=== PATIENT | male | born 1980 | race Hispanic/Latino ===

== ENCOUNTER 2020-12-02 07:06 | Emergency (ER) | payer SELFPAY ==
--- NOTE | 2020-12-02 07:49 | EDPHYS ---
Physician Documentation [facility] Name: Manuel Tijerina Age: 40 yrs Sex: Male : 1980 Arrival Date: 12/02/2020 Time: 07:07 Bed 13 Private MD: ED Physician Billy Armijo HPI: 12/02 07:33 This 40 yrs old Male presents to ER via Ambulatory with complaints of Foreign kb Body In Eye. 07:33 The patient is experiencing pain, redness, to the left eye. Onset: The symptoms/episode kb began/occurred yesterday, and became worse this morning. Duration: the symptoms are continuous. Aggravated by nothing. Alleviated by nothing. Associated signs and symptoms: Pertinent positives: None. Severity of symptoms: At their worst the symptoms were moderate in the emergency department the symptoms are unchanged. The patient has experienced a previous episode. The patient has not recently seen a physician. Patient reports dryness to left eye that started after work yesterday. Woke up today with pain and redness to left eye. States he works in construction and believes maybe he got something in his eye.. Historical: - Allergies: 07:27 NKDA; bp - Home Meds: 07:27 None [Active]; bp - PMHx: 07:27 None; bp - Immunization history:: Adult Immunizations up to date. - Social history:: Smoking status: Patient denies any tobacco usage or history of. ROS: 07:33 Constitutional: Negative for fever, chills, and weight loss. kb 07:33 Eyes: Positive for pain, redness, of the left eye. 07:33 All other systems are negative. Exam: 07:34 Constitutional: This is a well developed, well nourished patient who is awake, alert, kb and in no acute distress. Head/Face: Normocephalic, atraumatic. ENT: Moist Mucous membranes Respiratory: Respirations even and unlabored. No increased work of breathing, no retractions or nasal flaring. Skin: Warm, dry with normal turgor. Normal color. MS/ Extremity: Pulses equal, no cyanosis. Neurovascular intact. Full, normal range of motion. Neuro: Awake and alert, GCS 15, oriented to person, place, time, and situation. Moves all extremities. Normal gait. Psych: Awake, alert, with orientation to person, place and time. Behavior, mood, and affect are within normal limits. 07:45 Eyes: Corneas: abrasion, that is small, on the left, at 3 o'clock, foreign body, on kb the left, at 3 o'clock, tiny piece of debris, a fluorescein strip employed to appreciate the findings. Vital Signs: 07:26 BP 135 / 86; Pulse 58; Resp 16; Temp 97.2; Pulse Ox 100% ; Weight 92.99 kg; Height 5 bp ft. 9 in. (175.26 cm); 07:26 Body Mass Index 30.27 (92.99 kg, 175.26 cm) bp Procedures: 07:46 Foreign Body Removal: dirt, from the left eye, conjunctiva by using a cotton-tipped kb swab, The patient tolerated the removal well. MDM: 07:21 Patient medically screened. kb 07:34 Data reviewed: vital signs, nurses notes. Data interpreted: Pulse oximetry: on room air kb is 100 %. Interpretation: normal. 07:35 Counseling: I had a detailed discussion with the patient and/or guardian regarding: the kb historical points, exam findings, and any diagnostic results supporting the discharge/admit diagnosis, the need for outpatient follow up, an opthalmologist, to return to the emergency department if symptoms worsen or persist or if there are any questions or concerns that arise at home. 08 07:23 Order name: Eye Tray; Complete Time: 07:37 kb 12/02 07:23 Order name: Fluoresene Opth strip; Complete Time: 07:37 kb Administered Medications: 07:37 Drug: Tetracaine Drops 0.5 % 1 drops Route: Ophthalmic; Site: left eye; bp Disposition: 18:05 Co-signature as Attending Physician, Billy Armijo MD I agree with the assessment and roosevelt plan of care. Disposition Summary: 12/02/20 07:49 Discharge Ordered Location: Home Condition: Stable Diagnosis - Injury of conjunctiva and corneal abrasion without foreign body, left eye - with kb FB, FB removed Followup: kb - With: Emergency Department - When: As needed - Reason: Worsening of condition Followup: kb - With: Private Physician - When: 2 - 3 days - Reason: Recheck today's complaints, Continuance of care, Re-evaluation by your physician Discharge Instructions: - Discharge Summary Sheet kb - Corneal Abrasion, [id number] kb - Ear Foreign Body, [id number] kb Forms: - Medication Reconciliation Form kb - Thank You Letter kb - Antibiotic Education kb - Prescription Opioid Use kb - Work release form eb Prescriptions: - Erythromycin 5 mg/gram (0.5 %) Ophthalmic Ointment - apply 1 centimeter by OPHTHALMIC route 2-3 times daily for 7 days; 1 tube; kb Refills: 0, Product Selection Permitted Signatures: Ana Laura Wade, FILEMON-C FILEMON-Billy Bah MD MD cha Peltier, Brian, RN RN bp
--- NOTE | 2020-12-02 07:49 | ER ---
Nurse's Notes [facility] Name: Manuel Tijerina Age: 40 yrs Sex: Male : 1980 Arrival Date: 12/02/2020 Time: 07:07 Bed 13 Private MD: Diagnosis: Injury of conjunctiva and corneal abrasion without foreign body, left eye-with FB, FB removed Presentation: 12/02 07:26 Chief complaint: Patient states: FB SENSATION IN EYE SINCE WORK Y/D. PT WORKS IN [employer]. Coronavirus screen: At this time, the client does not indicate any symptoms associated with coronavirus-19. Ebola Screen: No symptoms or risks identified at this time. Initial Sepsis Screen: Does the patient meet any 2 criteria? No. Patient's initial sepsis screen is negative. Does the patient have a suspected source of infection? No. Patient's initial sepsis screen is negative. Risk Assessment: Do you want to hurt yourself or someone else? Patient reports no desire to harm self or others. Onset of symptoms was December 01, 2020. 07:26 Method Of Arrival: Ambulatory bp 07:26 Acuity: OMA 4 bp Triage Assessment: 07:27 General: Appears in no apparent distress. uncomfortable, Behavior is calm, cooperative, bp appropriate for age. Pain: Complains of pain in left eye. EENT: No deficits noted. Neuro: No deficits noted. Cardiovascular: No deficits noted. Respiratory: No deficits noted. GI: No signs and/or symptoms were reported involving the gastrointestinal system. : No signs and/or symptoms were reported regarding the genitourinary system. Derm: No deficits noted. Musculoskeletal: No signs and/or symptoms reported regarding the musculoskeletal system. Historical: - Allergies: 07:27 NKDA; bp - Home Meds: 07:27 None [Active]; bp - PMHx: 07:27 None; bp - Immunization history:: Adult Immunizations up to date. - Social history:: Smoking status: Patient denies any tobacco usage or history of. Screenin:31 Abuse screen: Denies threats or abuse. Denies injuries from another. Nutritional bp screening: No deficits noted. Tuberculosis screening: No symptoms or risk factors identified. Fall Risk None identified. Assessment: :31 General: SEE TRIAGE NOTE. bp 08:10 Reassessment: PT D/C HOME AMBULATORY WITH FAMILY, DX [place] FB SENSATION IN LEFT EUE. bp Vital Signs: 07:26 BP 135 / 86; Pulse 58; Resp 16; Temp 97.2; Pulse Ox 100% ; Weight 92.99 kg; Height 5 bp ft. 9 in. (175.26 cm); 07:26 Body Mass Index 30.27 (92.99 kg, 175.26 cm) bp ED Course: 07:07 Patient arrived in ED. as 07:20 Ana Laura Wade [facility]-C [facility]. kb 07:20 Billy Armijo MD is Attending Physician. kb 07:25 Brandyn Leyva, RN is Primary Nurse. bp 07:27 Triage completed. bp 07:27 Arm band placed on. bp 07:31 Patient has correct armband on for positive identification. Bed in low position. Call bp light in reach. Side rails up X2. Administered Medications: 07:37 Drug: Tetracaine Drops 0.5 % 1 drops Route: Ophthalmic; Site: left eye; bp Outcome: 07:49 Discharge ordered by . kb 08:17 Patient left the ED. iw Signatures: Ana Laura Wade FNP-C FNP-Ckb Martinez, Amelia as Williams, Irene, RN RN iw Brandyn Leyva, RN RN bp
[2020-12-02] MEDS ORDERED: FLUORESCEIN SODIUM 1 MG/WRAP ONE (07:57)
[2020-12-02] MEDS ORDERED: TETRACAINE HCL 0.5% 4ML OPTH ONE (07:57)
[2020-12-02 08:24] VITALS: BP 135/86; TEMP 97.2; O2SAT 100
== END 2020-12-02 08:17 | disposition home or self-care (01) ==
LOC: ER 07:06
PROC: 08C9XZZ Extirpation of Matter from Left Cornea, External Approach (ICD-10-PCS; principal; 2020-12-02)
DX: T15.02XA Foreign body in cornea, left eye, initial encounter (principal)
CPT/HCPCS: 99282